=== PATIENT | male | born 1950 | race Caucasian/White ===

== ENCOUNTER → 2018-09-09 08:16 | Emergency (ER) | payer BC, MEDICARE ==
--- NOTE | 2018-09-09 08:57 | ED ---
Lower Extremity - HPI Summary HPI Summary: Pt is a 68 y/o M presenting to the ED with a chief complaint of RLE edema. He reports hx of DVT in 2007, he was on Warfarin then he had an accident with internal bleeding so he was taken off of the blood thinner. In 2010, he had a DVT and multiple PE, so his PCP in [place] placed him back on the blood thinner. He takes 10mg 3 days a week, and 12.5mg 4 days a week. His last INR was 3.7, and Dr. Rosas likes to keep him between 2.5-3.5. 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 He reports pain and edema in the R calf, as well as R knee pain onset about 1.5 weeks ago. He denies CP, SOB, numbness/tingling in the R foot, pain in the L calf, pain in the R thigh, urinary sx, trouble swallowing, abd pain, N/V/D, black or bloody stools. His father had esophageal CA, and his sister had uterine CA. - History of Current Complaint Chief Complaint: EDExtremityLower Stated Complaint: POSS BLOOD CLOT PER PT Time Seen by Provider: 09/09/18 08:29 Hx Obtained From: Patient Mechanism Of Injury: Unknown Onset of Pain: Days Onset/Duration: Still Present Severity Initially: Mild Severity Currently: Mild Pain Intensity: 2 Pain Scale Used: 0-10 Numeric Timing: Constant, Lasting Days Location: Is Diffuse - RLE Associated Signs And Symptoms: Positive: Negative - R thigh pain, L calf pain, Swelling, Knee Pain, Other - R calf pain Aggravating Factor(s): Nothing Alleviating Factor(s): Nothing Able to Bear Weight: Yes - Allergies/Home Medications Allergies/Adverse Reactions: Allergies Allergy/AdvReac Type Severity Reaction Status Date / Time No Known Allergies Allergy Verified 09/09/18 08:18 Home Medications: Home Medications Warfarin Sodium 10 mg PO SEE INSTRUCTIONS 09/09/18 [History Confirmed 09/09/18] buPROPion TAB* [Wellbutrin TAB*] 100 mg PO TID 09/09/18 [History Confirmed 09/09] PMH/Surg Hx/FS Hx/Imm Hx Previously Healthy: No Endocrine/Hematology History: Reports: Hx Anticoagulant Therapy, Hx Blood Disorders - DVTs Respiratory History: Reports: Hx Pulmonary Embolism Infectious Disease History: No Infectious Disease History: Denies: Traveled Outside the [place] in Last 30 Days - Family History Known Family History: Positive: Other - father esophageal CA, sister uterine CA - Social History 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 Negative: Other - R thigh, L calf pain Negative: Paresthesia, Numbness All Other Systems Reviewed And Are Negative: Yes Physical Exam - Summary Physical Exam Summary: Constitutional: Well-developed, Well-nourished, Alert. (-) Distressed Skin: Warm, Dry HENT: Normocephalic; Atraumatic Eyes: Conjunctiva normal Neck: Musculoskeletal ROM normal neck. (-) JVD, (-) Stridor, (-) Tracheal deviation Cardio: Rhythm regular, rate normal, Heart sounds normal; Intact distal pulses; The pedal pulses are 2+ and symmetric. Radial pulses are 2+ and symmetric. Pulmonary/Chest wall: Effort normal. (-) Respiratory distress, (-) Wheezes, (-) Rales Abd: Soft, (-) tenderness, (-) Distension, (-) Guarding, (-) Rebound Musculoskeletal: Asymmetrical edema in the R calf in comparison to the LLE. There is no breakdown of the skin, erythema, or pitting edema. There are great pedal pulses. Neuro: Alert, Oriented x3 Psych: Mood and affect Normal : External male genitalia is normal. There are no rashes, hernias, and femoral pulses are good. Triage Information Reviewed: Yes Vital Signs On Initial Exam: Initial Vitals Temp Pulse Resp BP Pulse Ox 97.8 F 89 18 146/88 97 09/09/18 08:18 09/09/18 08:18 09/09/18 08:18 09/09/18 08:18 09/09/18 08:18 Vital Signs Reviewed: Yes Diagnostics - Vital Signs Vital Signs Temp Pulse Resp BP Pulse Ox 09/09/18 08:18 97.8 F 89 18 146/88 97 - Laboratory Result Diagrams: 09/09/18 08:49 09/09/18 08:49 Lab Statement: Any lab studies that have been ordered have been reviewed, and results considered in the medical decision making process. - Ultrasound DVT US Ultrasound Interpretation Completed By: Radiologist Summary of Ultrasound Findings: NONOCCLUSIVE THROMBUS NOTED WITHIN THE RIGHT FEMORAL AND POPLITEAL VEINS, WITH OCCLUSIVE THROMBUS WITHIN A CALF VEIN. ED physician has reviewed this report. - EKG 0853 Cardiac Rate: NL - 73bpm EKG Rhythm: Sinus Rhythm ST Segment: Non-Specific - T waves Ectopy: None Summary of EKG Findings: EKG at 0853 shows NSR at 73bpm with 1st degree AV block , nonspecific T wave abnormalities, and no STEMI. Lower Extremity Course/Dx - Course Course Of Treatment: Pt is a 68 y/o M presenting to the ED with a chief complaint of RLE edema. He reports pain and edema in the R calf, as well as R knee pain onset about 1.5 weeks ago. He denies CP, SOB, numbness/tingling in the R foot, pain in the L calf, pain in the R thigh, urinary sx, trouble swallowing, abd pain, N/V/D, black or bloody stools. He reports hx of DVT in 2007, he was on Warfarin then he had an accident with internal bleeding so he was taken off of the blood thinner. In 2010, he had a DVT and multiple PE, so his PCP in [place] placed him back on the blood thinner. He takes 10mg 3 days a week, and 12.5mg 4 days a week. His last INR was 3.7, and Dr. Rosas likes to keep him between 2.5-3.5. On exam, the pt has asymmetrical edema in the R calf in comparison to the LLE. There is no breakdown of the skin, erythema, or pitting edema. There are great pedal pulses. External male genitalia is normal, there are no rashes, hernias, and femoral pulses are good. EKG at 0853 shows NSR at 73bpm with 1st degree AV block, nonspecific T wave abnormalities, and no STEMI. DVT US shows: NONOCCLUSIVE THROMBUS NOTED WITHIN THE RIGHT FEMORAL AND POPLITEAL VEINS, WITH OCCLUSIVE THROMBUS WITHIN A CALF VEIN. I spoke with Dr. Simons at 1045 who will be coming to evaluate the patient. The [employer] MANAGER hospitalist would like the patient to stop his Warfarin and begin Xarelto 15mg BID. Due to the pt's prior hx of PE/DVT, she also advised him that he needs to come back to the ED immediately if he begins experiencing symptoms similar to his last PE. She advised him to follow up with Sherry Aiken, Hematology/Oncology before the Xarelto prescription runs out. Dr. Aiken is aware of the situation. - Diagnoses Provider Diagnoses: DVT (deep venous thrombosis) Discharge - Sign-Out/Discharge Documenting (check all that apply): Patient Departure Patient Received Moderate/Deep Sedation with Procedure: No - Discharge Plan Condition: Fair Disposition: HOME Prescriptions: Rivaroxaban TAB(*) [Xarelto 15 mg(*)] 15 mg PO BID 21 Days #42 tab Rivaroxaban TAB(*) [Xarelto 20 mg] 20 mg PO DAILY 30 Days #30 tab Patient Education Materials: Deep Vein Thrombosis (ED) Referrals: Atif Rosas MD [Primary Care Provider] - Sherry Aiken MD [Medical Doctor] - Additional Instructions: Please stop taking your Warfarin immediately and begin taking the Xarelto BID 15mg. Follow up with Sherry Aiken of Hematology/Oncology before this Xarelto prescription runs out, within the next 1-3 days. Also follow up with your PCP, Dr. Rosas, within the next week. Return to the ED immediately with any chest pain, symptoms similar of your last episode of PE, or worsening current symptoms. - Billing Disposition and Condition Condition: FAIR Disposition: Home - Attestation Statements Document Initiated by Quiana: Yes Documenting Scribe: Marilee Ochoa Provider For Whom Quiana is Documenting (Include Credential): Junajo Encarnacion MD. Scribe Attestation: Marilee Garcia scribed for Juanjo Encarnacion MD. on 09/09/18 at 1710. Scribe Documentation Reviewed: Yes Provider Attestation: The documentation as recorded by the binhibe, Marilee Ochoa accurately reflects the service I personally performed and the decisions made by me, Juanjo Encarnacion MD. Status of Scribe Document: Viewed Consult Consult: I spoke with Dr. Simons at 1045 who will be coming to evaluate the patient. The [employer] MANAGER hospitalist would like the patient to stop his Warfarin and begin Xarelto 15mg BID. Due to the pt's prior hx of PE/DVT, she also advised him that he needs to come back to the ED immediately if he begins experiencing symptoms similar to his last PE. She advised him to follow up with Sherry Aiken, Hematology/Oncology before the Xarelto prescription runs out. Dr. Aiken is aware of the situation.
[2018-09-09 09:00] LABS: ABS Eosinophils 0.1 10^3/ul (0-0.6); ABS Lymphocytes 1.2 10^3/ul (1.0-4.8); ABS Monocytes 0.4 10^3/ul (0-0.8); ABS Neutrophils 2.3 10^3/ul (1.5-7.7); Eosinophil % 2.5 %; Hematocrit 41 % (42-52); Hemoglobin 14.1 g/dL (14.0-18.0); Lymphocyte % 29.6 %; Mean Corpuscular HGB Conc 34 g/dL (31-36); Mean Corpuscular Hemoglobin 32 pg (27-31); Mean Corpuscular Volume 92 fL (80-94); Nucleated Red Blood Cells % 0.1; Platelet Count 178 10^3/uL (150-450); Red Blood Count 4.46 10^6 /uL (4.18-5.48); Red Cell Distribution Width 14 % (10-15)
[2018-09-09 09:04] LABS: Activated Partial Thrombo Time 49.9 seconds (26.0-38.0); INR 3.54 (0.82-1.09)
[2018-09-09 09:13] LABS: BUN/Creatinine Ratio 16.5 (8-20); Calcium 9.1 mg/dL (8.6-10.3); EGFR African American 93.7 (>60); EGFR Non-African American 77.4 (>60); Potassium 4.1 mmol/L (3.5-5.0)
--- NOTE | 2018-09-09 12:40 | CONSULT ---
Subjective Date of Service: 09/09/18 Interval History: Mr. Yoon is a 68 year old male patient with history of hyperlipidemia, DVT/PE , hypothyroidism, depression, essential tremor that presented to the ED toda with complaints of right calf pain and swelling. Patient describes symptoms of caudication for the last week with increase in calf diameter in the last 2 days. Patient denies SOB, no chest pain, no fatigue, no weakness, no trauma, no recent travel, no recent surgery or procedures. Patient has history of recurrent DVT/PE and has been on coumadin in therapeutic range since 2010. Patient was found to have two non-occlusive DVTs in the RLE and one occlusive via US today. We have been asked to evaluate the patient for potential admission. Family History: Unchanged from Admission - father with esophageal CA, sister with uterine CA Social History: Unchanged from Admission - never smoked, drinks ETOH infrequently, no drugs use, Past Medical History: Unchanged from Admission - as above Review of Systems - Measurements Intake and Output: Intake and Output Last 24 Hours 09/07/18 09/08/18 09/09/18 09/10/18 06:59 06:59 06:59 06:59 Weight 210 lb - Review of Systems Constitutional Symptoms: Negative: Weight Gain, Weight Loss, Weakness, Fatigue, Fever, Night Sweats, Unexplained Falls, Other Dermatology: Negative: Normal, Rash, Skin Lesions, Cancer, Skin Lumps, Other HEENT: Negative: Normal, Change in Hearing, Vertigo, Dental Problems, Tinnitus, Sinus Problem, Other Eyes: Negative: Normal, Change in Vision, Double Vision, Eye Pain, Glaucoma, Cataract, Contacts or Glasses, Other Thyroid: Positive: Primary Hypothyroidism Negative: Normal, Goiter, Thyroid Nodule, Cold Intolerance, Heat Intolerance , Sweatiness, Tremor, Frequent Defecation, Constipation, Palpitations, Primary Hyperthyroidism, Weight Loss, Weight Gain, Change in Skin/Hair, Change in Menstruation, Radiation Exposure, Other Pulmonary: Negative: Normal, Cough, Sputum, Hemoptysis, Wheezing, Respiratory Distress, Shortness of Breath, COPD, Asthma, Exercise Intolerance, Home Oxygen, Other Cardiology: Negative: Normal, Chest Pain, Shortness of Breath, Palpitations, Swelling of Ankles, Peripheral Vascular Dis, Edema, Faintness, Syncope, Claudication, Proximal NocturnalDyspnea, Orthopnoea, Other Gastroenterology: Negative: Normal, Abdominal Pain, Nausea, Vomiting, Anorexia, Indigestion, Difficulty Swallowing, Heartburn, Constipation, Diarrhea, Blood in Stools, Change in Bowel Habits, Haematemesis, Melena, Other Genital - Urinary: Negative: Normal, Dysuria, Hematuria, Polyuria, Nocturia, Other Musculoskeletal: Positive: Other - calf swelling, right with posterior knee pain and pain with ambulation Negative: Joint Pain, Joint Stiffness, Arthritis, Osteoporosis, Low Back Pain , Sciatica, Joint Deformities, Kyphoscoliosis Endocrinology: Positive: Thyroid Problems Negative: Normal, Adrenal Problems, Gonadal Problems, Family Hx Endocrine Disorders, Obesity, Diabetes Mellitus, Hyperglycemia, Hx Hypoglycemia, Diabetic Foot Ulcers, Calluses, Hirsutism, Menstrual Abnormalities, Polydipsia, Polyuria , Gonadal Problems, Gynecomastia, Pituitary disease, Other Hematologic/Lymphatic: Positive: Use of Anticoagulant Negative: Anemia, Easy Bruising, Hx Leukemia, Hx Lymphoma, Use of Antiplatelet Drugs, Other Neurology: Positive: Other - essential tremor Negative: Normal, Headache, Migraines, Change in Vision, Diplopia, Dizziness , Change in Balancing, Change in Coordination, Change in Memory, Change in Speech, Change in Sphincter Function, Change in Walking, Numbness\Paresthesiae, Unexplained Weakness, Hx of Stroke\TIA, Hx of Seizures Psychiatry: Negative: Normal, Depression, Anxiety, Depressed Mood, Anhedonia, Sexual Dysfunction, Weight Change, Guilt Feelings, Tearfulness, Unusual Fatigue, Unusual Anxiety, Suicidal Ideation, Hypomania, Eating Disorders, Other Allergic/Immunologic: Negative: Hx Anaphylaxis, Hx Angioedema, Hx Environmental, Hx Seasonal, Asthma, Hx HIV, Immunocompromise, Swollen Glands LymphNodes, Other Objective Vital Signs - 8 hr 09/09/18 09/09/18 09/09/18 08:18 08:28 08:29 Temperature 97.8 F Pulse Rate 89 88 75 Respiratory 18 Rate Blood Pressure 146/88 132/89 (mmHg) O2 Sat by Pulse 97 97 98 Oximetry 09/09/18 09/09/18 09/09/18 08:59 09:00 09:29 Temperature Pulse Rate 81 77 68 Respiratory Rate Blood Pressure 137/83 132/74 (mmHg) O2 Sat by Pulse 96 96 94 Oximetry 09/09/18 09/09/18 09/09/18 09:59 10:00 10:29 Temperature Pulse Rate 80 84 72 Respiratory Rate Blood Pressure 137/71 139/74 (mmHg) O2 Sat by Pulse 95 95 95 Oximetry 09/09/18 09/09/18 11:02 11:29 Temperature Pulse Rate 71 Respiratory 17 15 Rate Blood Pressure 156/88 (mmHg) O2 Sat by Pulse 96 Oximetry Oxygen Devices in Use Now: None Appearance: alert, well appearing, NAD Eyes: No Scleral Icterus, PERRLA Ears/Nose/Mouth/Throat: NL Teeth, Lips, Gums, Mucous Membranes Moist Neck: NL Appearance and Movements; NL JVP, Trachea Midline Respiratory: Symmetrical Chest Expansion and Respiratory Effort, Clear to Auscultation Cardiovascular: NL Sounds; No Murmurs; No JVD, RRR Abdominal: NL Sounds; No Tenderness; No Distention, No Hepatosplenomegaly Lymphatic: No Cervical Adenopathy Extremities: No Clubbing, Cyanosis, - - right calf edema with assymetry compared to left, mild pain to palpation Skin: No Rash or Ulcers Neurological: Alert and Oriented x 3, NL Sensation, NL Gait, NL Muscle Strength and Tone Result Diagrams: 09/09/18 08:49 09/09/18 08:49 Diagnostic Imaging: Patient Name: LAURA YOON Medical Record#: [id number] Ordering Physician: Juanjo Encarnacion MD Acct.#: [id number] : 1950 Age: 68 Sex: M Location: EMERGENCY DEPARTMENT Exam Date: 09/09/18841 ADM Status: REG ER Order Information: VL LOWER EXT VEINS RIGHT Accession Number: [id number] CPT: 93467 HISTORY: RLE swelling x2 days, r/o DVT COMPARISONS: None relevant TECHNIQUE: Multiple transverse and longitudinal ultrasound images were obtained of the right lower extremity from the level of the common femoral vein inferiorly through to the infrapopliteal veins using grayscale, color Doppler, and spectral Doppler imaging with and without compression and with augmentation. Comparison images were obtained of the contralateral common femoral vein. FINDINGS: VEINS: There is nonocclusive thrombus noted within the right femoral vein inferiorly as well as within the popliteal vein. There is thrombosis of one branch of the parent peroneal veins. The remainder of the venous system of the right lower extremity is compressible throughout its course, with normal flow on color Doppler imaging and normal response to augmentation on spectral Doppler imaging. SOFT TISSUES: Unremarkable. OTHER FINDINGS: None. IMPRESSION: NONOCCLUSIVE THROMBUS NOTED WITHIN THE RIGHT FEMORAL AND POPLITEAL VEINS, WITH OCCLUSIVE THROMBUS WITHIN A CALF VEIN. Assessment/Plan - Billing Assessment: This is s 68 year old male patient with history of unprovoked DVT, DVT with PE while off anticoagulation, and now presents to the ED with recurrent DVT while on anticoagulation with coumadin at therapeutic level. 1. 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 Sherry Aiken, Hematology who recommends the patient start Xarelto 15mg PO BID for 3 weeks. Per protocol should then drop to 20 mg daily thereafter. Patient should follow up with Dr. Aiken in the office within the next two weeks and his PCP within the week. - Instructed patient not to exercise vigorously, not to massage the calf or induce symptoms of pain/caudication. He should be cleared by his PCP or hematology befor returning to the gym or exercise activities. - Given that the patient has non-floating DVT with no PE at this time, his chance of new PE (despite therapeutic anticoagulation) is low, approx 3% per studies - Discussed xarelto with patient, no need for dietary changes or regular lab work, bleeding risks associated with anticoagulation also covered - Explained in detail to patient the s/s of PE which he is already familiar with, however, if he experiences any chest pain, shortness of breath or dizziness he is to return to the ER immediately or call 911 to be re-evaluated. Patient verbalized his understanding of this instruction. - Discussed with ED physician Dr. Encarnacion, may give first dose xarelto now or start this evening with meal, there is no clinical indication to bridge from coumadin to xarelto. 2. PMH, continue home medications with no changes: Wellbutrin, primidone, synthroid, zocor, vitamin D Admission Status and Rationale: Medically stable for discharge from ED on NOAC with outpatient hematology follow up. Thank you for the courtesy of this consultation.
[2018-09-09 12:56] VITALS: BP 138/85
--- NOTE | 2018-09-09 15:09 | CONS ---
CC: Dr. Rosas; Dr. Aiken * CONSULTATION REPORT: DATE OF CONSULT: 09/09/17 - EMERGENCY DEPT ADDENDUM: The case was reviewed and discussed with Vy Washington NP. In summary, Mr. Yoon is a 68 years old male with a past medical history of hyperlipidemia, hypothyroidism, depression, recurrent DVT and PE. As outlined on his full consultation report, he presented to emergency room with complaints of leg pain and doppler showed nonocclusive thrombus noted within the right femoral and popliteal veins with occlusive thrombus of a calf vein. This is in the setting of therapeutic INR of 3.5. The patient has no complaints of chest pain, palpitations, or shortness of breath and the hospitalist service was consulted to help manage this warfarin failure. The case was discussed with Hematology (Dr. Aiken) and her recommendation was to switch the patient from warfarin to Xarelto 15 mg p.o. b.i.d. for 3 weeks, then decrease to 20 mg daily , and she will follow up with him in the next 2 weeks and he was also advised to follow up with his PCP next week. For more details about the management, I refer you to the full dictation dictated by Vy Washington and in agreement with the current management. [id number] #: [id number] MTDD
== END | disposition home or self-care (01) ==
LOC: ED 08:16
DX: I82.411 Acute embolism and thrombosis of right femoral vein (principal); I82.431 Acute embolism and thrombosis of right popliteal vein; I82.4Z1 Acute embolism and thrombosis of unspecified deep veins of right distal lower extremity; I44.0 Atrioventricular block, first degree; Z86.718 Personal history of other venous thrombosis and embolism; Z79.01 Long term (current) use of anticoagulants
CPT/HCPCS: 36415; 80048; 84484; 85025; 85610; 85730; 93005; 99284

== ENCOUNTER 2018-10-04 17:37 | Emergency (ER) | payer MEDICARE ==
[2018-10-04 17:45] VITALS: BP 145/92
--- NOTE | 2018-10-04 18:25 | UC ---
Knee Pain HPI - HPI Summary HPI Summary: 68 yo male with right knee pain x weeks hx of arthroscopic surgery about 4 yrs ago on xeralto for DVT in that leg leg occasionally caren - History of Current Complaint Chief Complaint: UCLowerExtremity Stated Complaint: KNEE PAIN Time Seen by Provider: 10/04/18 18:03 Hx Obtained From: Patient Onset/Duration: Gradual Onset, Lasting Weeks Severity Initially: Mild Severity Currently: Severe Pain Intensity: 9 - at time, today a 3/10 Pain Scale Used: 0-10 Numeric Character: Sharp Aggravating Factor(s): Movement, Weight Bearing Alleviating Factor(s): Rest, Cold Associated Signs And Symptoms: Positive: Negative Able to Bear Weight: Yes - Allergies/Home Medications Allergies/Adverse Reactions: Allergies Allergy/AdvReac Type Severity Reaction Status Date / Time No Known Allergies Allergy Verified 10/04/18 17:45 PMH/Surg Hx/FS Hx/Imm Hx Previously Healthy: Yes Endocrine History: Dyslipidemia Cardiovascular History: Deep Vein Thrombosis Respiratory History: Pulmonary Embolism Other History Of: Anticoagulant Therapy - Surgical History Surgical History: Yes Surgery Procedure, Year, and Place: rt arthroscopy to rt knee 2009 - Family History Known Family History: Positive: Other - father esophageal CA, sister uterine CA - Social History Alcohol Use: Occasionally Substance Use Type: None Smoking Status (MU): Never Smoked Tobacco Review of Systems All Other Systems Reviewed And Are Negative: Yes Constitutional: Positive: Negative Skin: Positive: Negative Eyes: Positive: Negative ENT: Positive: Negative Respiratory: Positive: Negative Cardiovascular: Positive: Negative Gastrointestinal: Positive: Negative Genitourinary: Positive: Negative Musculoskeletal: Positive: Arthralgia - right knee Neurological: Positive: Negative Psychological: Positive: Negative Physical Exam Triage Information Reviewed: Yes Appearance: Well-Appearing, No Pain Distress, Well-Nourished Vital Signs: Initial Vital Signs Temp 98.3 F 10/04/18 17:41 Pulse 70 10/04/18 17:41 Resp 18 10/04/18 17:41 BP 145/92 10/04/18 17:41 Pulse Ox 99 10/04/18 17:41 Eyes: Positive: Conjunctiva Clear ENT: Positive: Hearing grossly normal. Negative: Nasal congestion, Nasal drainage, Trismus, Muffled voice, Hoarse voice Neck: Positive: Supple, Nontender, No Lymphadenopathy Respiratory: Positive: Lungs clear, Normal breath sounds, No respiratory distress Cardiovascular: Positive: RRR, No Murmur Musculoskeletal: Positive: Other: - right knee tender medial and laterally suspect effusion Neurological: Positive: Alert Psychological Exam: Normal Skin Exam: Normal Diagnostics - Radiology No standard instances Radiology Interpretation Completed By: ED Physician Summary of Radiographic Findings: DJD, joint space narrowing Knee Pain Course/Dx - Differential Dx/Diagnosis Provider Diagnosis: Degenerative joint disease of right knee Discharge - Sign-Out/Discharge Documenting (check all that apply): Patient Departure All imaging exams completed and their final reports reviewed: No - Discharge Plan Condition: Stable Disposition: HOME Patient Education Materials: Knee Pain (ED) Referrals: Atif Rosas MD [Primary Care Provider] - If Needed Mo Lanier MD [Medical Doctor] - As Soon As Possible Additional Instructions: ice twice daily offical XR report is pending I saw arthritis and narrowing of joint tylenol - Billing Disposition and Condition Condition: STABLE Disposition: Home
--- NOTE | 2018-10-05 12:53 | UC ---
- Progress Note Progress Note: RADIOLOGY REPORT REVIEWED. Small suprapatellar joint effusion and medial compartment degenerative joint disease in this otherwise nonacute knee. NO CHANGE IN MGMT. Course/Dx - Diagnoses Provider Diagnoses: Degenerative joint disease of right knee Discharge - Sign-Out/Discharge Documenting (check all that apply): Post-Discharge Follow Up All imaging exams completed and their final reports reviewed: Yes - Discharge Plan Condition: Stable Disposition: HOME Patient Education Materials: Knee Pain (ED) Referrals: Mo Lanier MD [Medical Doctor] - As Soon As Possible Atif Rosas MD [Primary Care Provider] - If Needed Additional Instructions: ice twice daily offical XR report is pending I saw arthritis and narrowing of joint tylenol - Billing Disposition and Condition Condition: STABLE Disposition: Home
== END 2018-10-04 18:42 | disposition home or self-care (01) ==
LOC: UCEAST 17:37
DX: M17.11 Unilateral primary osteoarthritis, right knee (principal); M25.461 Effusion, right knee; Z86.718 Personal history of other venous thrombosis and embolism; Z86.711 Personal history of pulmonary embolism; Z79.01 Long term (current) use of anticoagulants
CPT/HCPCS: 99211; G0463